=== PATIENT | male | born 1945 | race Caucasian/White ===

== ENCOUNTER 2021-04-02 03:01 | Outpatient (CLI) | payer MEDICARE, SELFPAY ==
[2021-04-02 10:41] LABS: HCT 40.6 % (40.0-50.0); HGB 13.3 g/dL (13.5-17.5); MCH 29.4 pg (27.0-33.0); MCHC 32.8 % (32.0-36.0); MCV 89.8 fL (80-95); MPV 10.5 fL (8.0-11.0); RBC 4.52 10^6/uL (4.36-5.78); RDW 17.2 % (11.8-14.1); RDW-SD 56.4 fL; WBC 14.32 10^3/uL (4.4-10.8)
[2021-04-02 11:29] LABS: ALT 30 U/L (16-63); AST 17 U/L (15-37); Albumin 3.9 g/dL (3.4-5.0); Alkaline Phosphatase 124 U/L (46-116); Anion Gap 7.4 mmol/L (3-11); BUN 16 mg/dL (7-18); Bilirubin, Direct 0.1 mg/dL (0.0-0.2); Bilirubin, Total 0.5 mg/dL (0.2-1.0); CO2 26.6 mmol/L (21.0-32.0); CREATININE 1.2 mg/dL (0.70-1.30); Calcium 9.5 mg/dL (8.5-10.1); Chloride 105 mmol/L (98-107); Estimated GFR 59.18 (mL/min/1.73m2); Glucose 108 mg/dL (74-106); Potassium 5.9 mmol/L (3.5-5.1); Sodium 139 mmol/L (136-145); Total Protein 7.1 g/dL (6.4-8.2)
[2021-04-02 11:30] LABS: Platelet Count 883 10^3/uL (130-400)
== END 2021-04-02 03:02 | disposition home or self-care (01) ==
LOC: LBO 03:01
DX: D47.3 Essential (hemorrhagic) thrombocythemia (principal)
CPT/HCPCS: 36415; 80051; 80076; 82947; 84520; 85027; 82310; 82565